=== PATIENT | female | born 1990 | race Caucasian/White ===

== ENCOUNTER 2020-08-17 01:20 | Inpatient (IN) | payer MEDICAID, SELFPAY ==
[~2020-08-17] VITALS: Ht 170.2 cm; Wt 83.9 kg
[2020-08-17] MEDS ORDERED: OXYTOCIN/0.9 % SODIUM CHLORIDE 1,000 ML IV SCH (03:45)
[2020-08-17] MEDS ORDERED: MORPHINE 4 MG/ML INJ. SYRINGE IVP PRN (03:45)
[2020-08-17] MEDS ORDERED: LR 500 ML IV ONE (03:45)
[2020-08-17] MEDS ORDERED: TERBUTALINE SULFATE 1 MG/ML VIAL SUBCUT ONE (03:45)
[2020-08-17 04:37] LABS: BASOPHILS % (AUTO) 0.2 % (0.0-2.0); HEMATOCRIT 41.9 % (36-48); LYMPHOCYTES # (AUTO) 1.1 K/uL (1.0-5.5); LYMPHOCYTES % (AUTO) 6.3 % (20.5-51.5); MEAN CORPUSCULAR HEMOGLOBIN 33 pg (27-31); MEAN CORPUSCULAR HGB CONC 33 % (32-36); MEAN CORPUSCULAR VOLUME 99 fL (79.0-98.0); MONOCYTES # (AUTO) 0.4 K/uL (0.0-1.0); MONOCYTES % (AUTO) 2.2 % (1.7-9.3); NEUTROPHILS # (AUTO) 16.4 K/uL (1.8-7.7); NEUTROPHILS % (AUTO) 91.3 % (40.0-70.0); PLATELET COUNT (AUTO) 239 K/uL (130-430); RED BLOOD CELL COUNT(AUTO) 4.24 MIL/uL (4.2-6.2); RED CELL DISTRIBUTION WIDTH 13.3 % (9.0-15.0); WHITE BLOOD COUNT (AUTO) 17.9 K/uL (4.8-10.8)
[2020-08-17] MEDS ORDERED: fentaNYL CITRATE/PF 100 MCG/2 ML AMP ONE (05:04)
[2020-08-17] MEDS ORDERED: ROPIVACAINE HCL/PF 0.2% 200 ML ONE (05:05)
[2020-08-17] MEDS: LR 1,000 ML IV SCH ×3 (05:50→06:24)
[2020-08-17] MEDS ORDERED: FENT2mCg/mL-ROPIVA0.2%/NS EPID 200 ML EP SCH (06:00)
[2020-08-17] MEDS ORDERED: NALOXONE HCL 0.4 MG/ML AMP (NARCAN) IVP PRN (06:00)
[2020-08-17] MEDS ORDERED: DIPHENHYDRAMINE INJ 50 MG/ML VIAL IVP PRN (06:00)
[2020-08-17] MEDS ORDERED: ONDANSETRON HCL 4 MG/2 ML VIAL IVP PRN (06:00)
[2020-08-17 07:53] VITALS: BP_SYST 121
[2020-08-17 07:57] VITALS: BP_SYST 114
[2020-08-17] MEDS ORDERED: AMPICILLIN SODIUM 2 GM in NS 100 ML IV ONE (14:15)
[2020-08-17] MEDS ORDERED: AMPICILLIN SODIUM 2 GM VIAL ONE (14:16)
[2020-08-17] MEDS: AMPICILLIN SODIUM 1 GM in NS 50 ML IV SCH ×2 (18:01→21:52)
[2020-08-17] MEDS ORDERED: ROPIVACAINE HCL/PF 0.2% 100 ML ONE (19:40)
[2020-08-18] MEDS ORDERED: RHO(D) IMMUNE GLOBULIN/MALTOSE 1500 UNITS/1.3 ML (WINHRO) IM PRN (01:00)
[2020-08-18] MEDS ORDERED: OXYTOCIN/0.9 % SODIUM CHLORIDE 1,000 ML IV ONE (01:00)
[2020-08-18] MEDS ORDERED: OXYTOCIN/0.9 % SODIUM CHLORIDE 1,000 ML IV SCH (01:00)
[2020-08-18] MEDS ORDERED: MEASLES,MUMPS&RUBELLA VACC/PF 12500 UNIT/0.5 ML VIAL SUBQ PRN (01:00)
[2020-08-18] MEDS ORDERED: DERMOPLAST SPRAY TP PRN (01:00)
[2020-08-18] MEDS ORDERED: WITCH HAZEL LEAF 1 MED.PAD MED.PAD TP PRN (01:00)
[2020-08-18] MEDS ORDERED: HYDROCORTISONE 0.5%, 28.35 GM TOPICAL CREAM TP PRN (01:00)
[2020-08-18] MEDS ORDERED: DIPH-TET-PERTUS Vaccine 0.5 ML VIAL (ADACEL) I.M. PRN (01:00)
[2020-08-18] MEDS ORDERED: ANUSOL 1 EA SUPP.RECT (PREPARATION H) RC PRN (01:00)
[2020-08-18] MEDS ORDERED: SENNOSIDES/DOCUSATE SODIUM 1 TAB TABLET(SENOKOT-S) PO PRN (01:00)
[2020-08-18] MEDS: IBUPROFEN 600 MG TABLET PO SCH ×4 (01:00→18:17)
[2020-08-18] MEDS ORDERED: LANOLIN 7 GM OINT. TP PRN (01:00)
[2020-08-18] MEDS ORDERED: TEMAZEPAM 15 MG CAPSULE PO PRN (01:00)
[2020-08-18] MEDS ORDERED: LIDOCAINE PF 1% 30ML(POUR BTL) INJ ONE (07:50)
[2020-08-18] MEDS ORDERED: MINERAL OIL 30 ML UDC PO ONE (07:50)
[2020-08-18] MEDS: DOCUSATE SODIUM 100 MG CAPSULE PO PRN (12:16)
[2020-08-18] MEDS ORDERED: HYDROcodone/ACETAMIN 5-325 MG TAB (NORCO/ VICODIN) PO PRN (22:15)
[2020-08-18] MEDS ORDERED: NALOXONE HCL 0.4 MG/ML AMP (NARCAN) IVP PRN (22:15)
[2020-08-19] MEDS: IBUPROFEN 600 MG TABLET PO SCH ×2 (05:58)
[2020-08-19 07:05] LABS: HEMOGLOBIN 9.5 g/dL (12.0-16.0)
[2020-08-19] MEDS: DOCUSATE SODIUM 100 MG CAPSULE PO PRN (08:02)
== END 2020-08-19 11:10 | disposition home or self-care (01) | DRG 560 ==
LOC: SPU 01:20
PROVIDERS: ADMIT Obstetrics & Gynecology; ATTEND Obstetrics & Gynecology
PROC: 10E0XZZ Delivery of Products of Conception, External Approach (ICD-10-PCS; principal; 2020-08-18)
PROC: 0KQM0ZZ Repair Perineum Muscle, Open Approach (ICD-10-PCS; 2020-08-18)
PROC: 3E0R3BZ Introduction of Anesthetic Agent into Spinal Canal, Percutaneous Approach (ICD-10-PCS; 2020-08-18)
PROC: 00HU33Z Insertion of Infusion Device into Spinal Canal, Percutaneous Approach (ICD-10-PCS; 2020-08-18)
DX: O69.81X0 Labor and delivery complicated by cord around neck, without compression, not applicable or unspecified (principal); Z3A.41 41 weeks gestation of pregnancy; Z37.0 Single live birth; O70.1 Second degree perineal laceration during delivery; Z20.822 Contact with and (suspected) exposure to COVID-19
CPT/HCPCS: 36415; 81002-TC; 85018-TC; 85025; 86592; 86886; 86900; 86901; J0290; J2001; J2590; J2795; J3010; J7120